=== PATIENT | male | born 1970 | race Caucasian/White ===

== ENCOUNTER 2018-12-14 14:10 | Day surgery (SDC) | payer BC ==
[~2018-12-14 14:10] MED LIST: CEFAZOLIN 2 GM/50 ML (PMX) 50 ML IVPB
[2018-12-14] MEDS ORDERED: PROPOFOL 20 ML (15:43)
[2018-12-14] MEDS ORDERED: MIDAZOLAM 1 MG/ML 2 ML INJ (15:43)
[2018-12-14] MEDS ORDERED: CEFAZOLIN 1 GM INJ (15:43)
[2018-12-14] MEDS ORDERED: KETOROLAC 30 MG INJ (16:23)
[2018-12-14] MEDS ORDERED: ONDANSETRON 4 MG INJ (16:23)
[2018-12-14] MEDS ORDERED: DEXAMETHASONE 4 MG/ML 5 ML INJ (16:23)
[2018-12-14] MEDS ORDERED: METOCLOPRAMIDE 10 MG INJ (16:23)
[2018-12-14] MEDS ORDERED: FENTAnyl 50 MCG/ML VIAL IV ×2 (16:30)
[2018-12-14] MEDS ORDERED: METOCLOPRAMIDE 10 MG INJ IV (16:30)
[2018-12-14] MEDS ORDERED: MEPERIDINE 25 MG INJ IV (16:30)
[2018-12-14] MEDS ORDERED: DIPHENHYDRAMINE 50 MG INJ IV (16:30)
[2018-12-14] MEDS ORDERED: EPHEDrine SULFATE 50 MG/5 ML SYG IV (16:30)
[2018-12-14] MEDS ORDERED: HYDROmorphONE 1 MG/5 ML IV SYRINGE IV ×2 (16:30)
[2018-12-14] MEDS ORDERED: hydrALAzine 20 MG INJ IV (16:30)
[2018-12-14] MEDS ORDERED: OXYCODONE/ACETAMINOPHEN (5/325) TAB PO (16:30)
[2018-12-14] MEDS ORDERED: LABETALOL HCL 20MG INJ IV (16:30)
[2018-12-14] MEDS: BUPIVACAINE 0.5% (SDV) 30 ML INJ (16:37)
[2018-12-14] MEDS: ONDANSETRON 4 MG INJ IV (17:26)
[2018-12-14] MEDS: LACTATED RINGER'S 1,000 ML IV* (17:26)
[2018-12-14] MEDS: OXYCODONE/ACETAMINOPHEN (5/325) TAB PO (17:26)
== END 2018-12-14 18:17 | disposition home or self-care (01) ==
LOC: SDS 14:10
DX: G56.03 Carpal tunnel syndrome, bilateral upper limbs (principal); I10 Essential (primary) hypertension; E11.9 Type 2 diabetes mellitus without complications; Z79.84 Long term (current) use of oral hypoglycemic drugs
CPT/HCPCS: 64721; 82962